=== PATIENT | female | born 1940 | race Caucasian/White ===

== ENCOUNTER 2022-06-02 08:56 | Outpatient (CLI) | payer MEDICARE ==
[~2022-06-02 08:56] MED LIST: Iopamidol-370 76% 500 ML 1 ML ONE
== END 2022-06-02 08:57 | disposition home or self-care (01) ==
LOC: BICCT 08:56
PROVIDERS: ATTEND Urology
DX: R31.29 Other microscopic hematuria (principal); N13.2 Hydronephrosis with renal and ureteral calculous obstruction; K57.30 Diverticulosis of large intestine without perforation or abscess without bleeding; I70.90 Unspecified atherosclerosis; N13.0 Hydronephrosis with ureteropelvic junction obstruction
CPT/HCPCS: 74178; 82565; Q9967

== ENCOUNTER 2022-10-01 19:59 | Inpatient (IN) | payer MEDICARE ==
[2022-10-01] MEDS ORDERED: Acetaminophen 650 MG Suppository PR PRN (21:19)
[2022-10-01] MEDS ORDERED: Acetaminophen 325 MG TAB PO PRN (21:19)
[2022-10-01] MEDS ORDERED: Ondansetron PF 4 MG/2 ML Vial IVP PRN (21:19)
[2022-10-01] MEDS ORDERED: Ondansetron ODT 4 MG TAB PO PRN (21:19)
[2022-10-01] MEDS: Doxycycline 100 MG in Sodium Chloride 0.9% 100 ML IVPB SCH (23:13)
[2022-10-01 23:20] LABS: Anion Gap 20 mmol/L (10-20); BUN (Urea Nitrogen) 71 mg/dL (9.8-20.1); Calc. Creatinine Clearance 12 mL/min (70-130); Calcium 10.9 mg/dL (7.8-10.44); Carbon Dioxide 24 mmol/L (23-31); Chloride 105 mmol/L (98-107); Estimated GFR 21; Glucose 129 mg/dL (83-110); Sodium 144 mmol/L (136-145)
[2022-10-01] MEDS: Sodium Chloride 0.9% 1,000 ML IV SCH (23:21)
[2022-10-01 23:39] LABS: Troponin I 0.706 ng/mL (< 0.028)
[2022-10-02 02:13] LABS: Troponin I 1.041 ng/mL (< 0.028)
[2022-10-02 02:22] LABS: Bacteria/HPF None Seen HPF (None Seen); Bilirubin Negative (Negative); Blood, Urine Negative (Negative); Clarity Clear (Clear); Glucose, Urine (Dipstick) 300 mg/dL (Negative); Ketone, Urine Negative (Negative); Leukocyte Negative Leu/uL (Negative); Nitrite Negative (Negative); Protein, Urine (Dipstick) Negative (Neg-Trace); Squamous Epithelial 0-3 HPF (0-3); Urobilinogen Normal mg/dL (Less than 2); pH, Urine 5.5 (5.0-9.0)
[2022-10-02] MEDS ORDERED: cefTRIAXone\\ROCEPHIN 1 GM in Sodium Chloride 0.9% 100 ML IVPB SCH (05:00)
[2022-10-02 05:52] LABS: Anion Gap 15 mmol/L (10-20); BUN (Urea Nitrogen) 79 mg/dL (9.8-20.1); Calc. Creatinine Clearance 12 mL/min (70-130); Calcium 10.4 mg/dL (7.8-10.44); Carbon Dioxide 30 mmol/L (23-31); Chloride 104 mmol/L (98-107); Estimated GFR 19; Glucose 149 mg/dL (83-110); Potassium 5.8 mmol/L (3.5-5.1); Sodium 143 mmol/L (136-145)
[2022-10-02 06:23] LABS: #Eosinphils 0.1 thou/uL (0.0-0.7); #Lymphocytes 0.8 thou/uL (1.20-3.40); #Monocytes 0.8 thou/uL (0.11-0.59); #Neutrophils 12.5 thou/uL (1.40-6.50); %Basophils 0.1 % (0.0-1.0); %Eosinophils 0.4 % (0.0-10.0); %Lymphocytes 5.5 % (21.0-51.0); %Monocytes 5.8 % (0.0-10.0); %Neutrophils 88.2 % (42.0-75.0); Hemoglobin 13.9 g/dL (12.0-16.0); Mean Corpuscular HGB CONC 28.2 g/dL (32.0-36.0); Mean Corpuscular Hemoglobin 28.9 pg (27.0-31.0); Mean Platelet Volume 9.3 fL (7.4-10.4); Platelet Count 258 10x3/uL (130-400); Red Blood Cell (RBC) Count 4.83 mill/uL (4.20-5.40); White Blood Cell (WBC) Count 14.1 10x3/uL (4.8-10.8)
[2022-10-02] MEDS ORDERED: Magnesium 5 GM/10 ML Abboject SYRINGE ONE (08:21)
[2022-10-02] MEDS ORDERED: EPINEPHrine 1 MG/10 ML Abboject SYRINGE ONE ×3 (08:23→08:28)
[2022-10-02] MEDS ORDERED: DEXTROSE IVPB SCH (08:45)
[2022-10-02] MEDS ORDERED: EPINEPHRINE IV SCH (08:45)
[2022-10-02] MEDS ORDERED: THIAMINE HCL IVPB SCH (08:45)
[2022-10-02] MEDS ORDERED: FOLIC ACID IVPB SCH (08:45)
[2022-10-02] MEDS ORDERED: NACL IVPB SCH (08:45)
[2022-10-02] MEDS ORDERED: DEXTROSE 5% IV SCH (08:45)
[2022-10-02] MEDS ORDERED: WATER IV SCH (08:45)
[2022-10-02] MEDS ORDERED: Acetaminophen 325 MG/10.15 ML UDCUP PO PRN (08:50)
[2022-10-02] MEDS ORDERED: Midazolam HCl 2 mg/2 ml Vial SLOW IVP PRN (08:56)
[2022-10-02] MEDS ORDERED: Fentanyl BOLUS 250 ML IVPB PRN (09:00)
[2022-10-02] MEDS ORDERED: Ventilator Sedation Protocol 1 EACH FS SCH (09:00)
[2022-10-02] MEDS ORDERED: Morphine 4 MG/ML VIAL SLOW IVP PRN (09:00)
[2022-10-02] MEDS ORDERED: Propofol BOLUS 1,000 MG/100 ML VIAL IV PRN (09:00)
[2022-10-02] MEDS ORDERED: DISCONTINUE PREVIOUS NARCOTIC PAIN MEDICATIONS AND BENZODIAZEPINES FS SCH (09:00)
[2022-10-02 09:13] LABS: Actual Bicarbonate (HCO3a) 31.5 mEq/L (22-28); Base Excess (BEa) -0.5 mEq/L (-2.0 to +3.0); Carboxyhemoglobin (COHb) 1.2 gm% (0.0-3.0); Hemoglobin (Hb) 15.8 g/dL (12.0-16.0); Potassium - ABG Lab 4.47 mmol/L (3.70-5.30)
[2022-10-02] MEDS: Sodium Bicarbonate 150 MEQ in Dextrose 5% in Water 1,000 ML IV SCH ×2 (09:29→19:14)
[2022-10-02 09:40] LABS: CO2 Tension 91.2 mmHg (35.0-45.0); O2 Tension (PaO2), arterial 46.8 mmHg (> 60.0); pH, Arterial 7.16 (7.35-7.45)
[2022-10-02 09:41] LABS: Calcium, Ionized (arterial) 1.76 mmol/L (1.12-1.30); Puncture Site LBA
[2022-10-02] MEDS: Sodium Chloride 0.9% 1,000 ML IV SCH (09:44)
[2022-10-02 09:54] LABS: Lactic Acid 3.3 mmol/L (0.5-2.2)
[2022-10-02 10:01] LABS: Actual Bicarbonate (HCO3a) 26.3 mEq/L (22-28); Base Excess (BEa) -1.9 mEq/L (-2.0 to +3.0); CO2 Tension 59.2 mmHg (35.0-45.0); Calcium, Ionized (arterial) 1.59 mmol/L (1.12-1.30); Carboxyhemoglobin (COHb) 1.2 gm% (0.0-3.0); Hemoglobin (Hb) 15.3 g/dL (12.0-16.0); Potassium - ABG Lab 4.46 mmol/L (3.70-5.30); pH, Arterial 7.27 (7.35-7.45)
[2022-10-02] MEDS: Heparin 5,000 UNITS/ML VIAL SC SCH ×3 (10:07→20:42)
[2022-10-02 10:08] LABS: O2 Tension (PaO2), arterial 54.8 mmHg (> 60.0)
[2022-10-02 10:09] LABS: Puncture Site RRA
[2022-10-02 10:19] LABS: Anion Gap 18 mmol/L (10-20); BUN (Urea Nitrogen) 76 mg/dL (9.8-20.1); Calc. Creatinine Clearance 11 mL/min (70-130); Calcium 12.3 mg/dL (7.8-10.44); Carbon Dioxide 23 mmol/L (23-31); Chloride 110 mmol/L (98-107); Estimated GFR 17; Glucose 198 mg/dL (83-110); Magnesium 5.6 mg/dL (1.6-2.6); Potassium 5.2 mmol/L (3.5-5.1); Sodium 146 mmol/L (136-145)
[2022-10-02 10:38] LABS: CKMB 7.2 ng/mL (0-6.6)
[2022-10-02] MEDS: Famotidine/PF 20 mg/2ml Vial SLOW IVP SCH (11:14)
[2022-10-02] MEDS: Doxycycline 100 MG in Sodium Chloride 0.9% 100 ML IVPB SCH ×2 (11:14→21:34)
[2022-10-02] MEDS: methylPREDNISolone Sod Succ 40 MG VIAL IVP SCH (11:15)
[2022-10-02] MEDS: Fentanyl CADD 100 ML IV SCH (12:25)
[2022-10-02 12:37] LABS: Hemoglobin 14.9 g/dL (12.0-16.0); Mean Corpuscular HGB CONC 28.7 g/dL (32.0-36.0); Mean Corpuscular Hemoglobin 29.8 pg (27.0-31.0); Mean Platelet Volume 9.1 fL (7.4-10.4); Platelet Count 199 10x3/uL (130-400); RBC Distribution Width 14.6 % (11.5-14.5); Red Blood Cell (RBC) Count 5.02 mill/uL (4.20-5.40); White Blood Cell (WBC) Count 29.6 10x3/uL (4.8-10.8)
[2022-10-02 12:49] LABS: Band 15 % (5-11); Lymphocytes 3 % (21-51); MDiff Complete? YES; Macrocytosis SLIGHT = 6-15 cells (100X) (0-5/hpf); Metamyelocyte 1 % (0-0); Monocytes 9 % (0-10); Neutrophil 72 % (42-75); Nucleated RBC 1 % (0); Platelet Morphology Comment Appears Adequate; Polychromasia SLIGHT = 2-3 cells (100X) (0-2/hpf)
[2022-10-02 13:11] LABS: Critical Call Chem Troponin I RESULT DECREASING
[2022-10-02] MEDS: Cefepime 1 GM in Sodium Chloride 0.9% 100 ML IVPB SCH (14:47)
[2022-10-02 15:34] LABS: CKMB 15.7 ng/mL (0-6.6)
[2022-10-02 18:54] LABS: HBCM Index 0.06 S/CO (0-0.79); HBSAg Index 0.29 S/CO (0-0.99); Hep A IgM AB Non-Reactive (NonReactive); Hep A IgM S/CO 0.49 S/CO (0-0.79); Hep B Surf Ag Non-Reactive S/CO (NonReactive); Hep C IgG Ab Non-Reactive (NonReactive); Hep C Index 0.08 S/CO (0-0.79); Hepatitis B Core IgM Abs Non-Reactive (NonReactive)
[2022-10-02] MEDS: NOREPINEPHRINE 8 MG/250 ML-D5W 250 ML IVPB SCH (20:45)
[2022-10-02 21:23] LABS: Chloride 105 mmol/L (98-107); Potassium 5.2 mmol/L (3.5-5.1); Sodium 145 mmol/L (136-145)
[2022-10-02 21:24] LABS: Calcium 11.1 mg/dL (7.8-10.44); Glucose 243 mg/dL (83-110)
[2022-10-02 21:26] LABS: Carbon Dioxide 21 mmol/L (23-31)
[2022-10-02 21:28] LABS: BUN (Urea Nitrogen) 77 mg/dL (9.8-20.1); Calc. Creatinine Clearance 11 mL/min (70-130); Estimated GFR 18
[2022-10-02 21:39] LABS: Anion Gap 24 mmol/L (10-20)
[2022-10-03] MEDS: Sodium Bicarbonate 150 MEQ in Dextrose 5% in Water 1,000 ML IV SCH ×3 (01:00→15:31)
[2022-10-03] MEDS: Amiodarone 450 MG, Admixture Fee 1 EACH in Dextrose 5% in Water 250 ML IVPB SCH ×4 (02:15→23:30)
[2022-10-03] MEDS: NOREPINEPHRINE 8 MG/250 ML-D5W 250 ML IVPB SCH ×4 (02:26→16:03)
[2022-10-03 02:51] LABS: ALT (SGPT) 81 U/L (8-55); AST (SGOT) 51 U/L (5-34); Albumin 2.8 g/dL (3.4-4.8); Alkaline Phosphatase 76 U/L (40-110); Anion Gap 18 mmol/L (10-20); BUN (Urea Nitrogen) 86 mg/dL (9.8-20.1); Bilirubin, Total 0.7 mg/dL (0.2-1.2); Calc. Creatinine Clearance 9 mL/min (70-130); Carbon Dioxide 29 mmol/L (23-31); Chloride 102 mmol/L (98-107); Estimated GFR 14; Globulin 2.4 g/dL (2.4-3.5); Glucose 226 mg/dL (83-110); Magnesium 4.5 mg/dL (1.6-2.6); Phosphorus 4.5 mg/dL (2.3-4.7); Potassium 4.1 mmol/L (3.5-5.1); Protein, Total 5.2 g/dL (5.8-8.1); Sodium 145 mmol/L (136-145)
[2022-10-03 03:02] LABS: Hemoglobin 15.5 g/dL (12.0-16.0); Mean Corpuscular HGB CONC 30.1 g/dL (32.0-36.0); Mean Corpuscular Hemoglobin 30.1 pg (27.0-31.0); Mean Platelet Volume 9.2 fL (7.4-10.4); Platelet Count 239 10x3/uL (130-400); RBC Distribution Width 14.7 % (11.5-14.5); Red Blood Cell (RBC) Count 5.13 mill/uL (4.20-5.40); White Blood Cell (WBC) Count 27.9 10x3/uL (4.8-10.8)
[2022-10-03] MEDS: Heparin 5,000 UNITS/ML VIAL SC SCH ×3 (09:05→20:50)
[2022-10-03] MEDS: Doxycycline 100 MG in Sodium Chloride 0.9% 100 ML IVPB SCH ×2 (09:10→21:58)
[2022-10-03] MEDS: methylPREDNISolone Sod Succ 40 MG VIAL IVP SCH (09:10)
[2022-10-03] MEDS: Famotidine/PF 20 mg/2ml Vial SLOW IVP SCH (09:10)
[2022-10-03] MEDS ORDERED: Sodium Bicarbonate 150 MEQ in Dextrose 5% in Water 1,000 ML IV SCH (12:00)
[2022-10-03] MEDS: Cefepime 1 GM in Sodium Chloride 0.9% 100 ML IVPB SCH (14:49)
[2022-10-03] MEDS: Insulin Regular 300 UNITS/3 ML VIAL SC PRN (18:43)
[2022-10-03] MEDS: Fentanyl CADD 100 ML IV SCH (23:48)
[2022-10-04] MEDS: Insulin Regular 300 UNITS/3 ML VIAL SC PRN ×2 (00:26→06:56)
[2022-10-04] MEDS: Sodium Bicarbonate 150 MEQ in Dextrose 5% in Water 1,000 ML IV SCH (03:25)
[2022-10-04 04:53] LABS: Lactic Acid 2.6 mmol/L (0.5-2.2)
[2022-10-04 04:58] LABS: ALT (SGPT) 64 U/L (8-55); AST (SGOT) 42 U/L (5-34); Albumin 2.5 g/dL (3.4-4.8); Alkaline Phosphatase 61 U/L (40-110); Anion Gap 15 mmol/L (10-20); BUN (Urea Nitrogen) 93 mg/dL (9.8-20.1); Bilirubin, Total 0.8 mg/dL (0.2-1.2); Calc. Creatinine Clearance 10 mL/min (70-130); Calcium 9.3 mg/dL (7.8-10.44); Carbon Dioxide 33 mmol/L (23-31); Chloride 92 mmol/L (98-107); Estimated GFR 14; Globulin 2.1 g/dL (2.4-3.5); Glucose 289 mg/dL (83-110); Potassium 3.4 mmol/L (3.5-5.1); Protein, Total 4.6 g/dL (5.8-8.1); Sodium 137 mmol/L (136-145)
[2022-10-04 05:41] LABS: Anisocytosis SLIGHT = 6-15 cells (100X) (0-5/hpf); Band 21 % (5-11); Hemoglobin 13.4 g/dL (12.0-16.0); Lymphocytes 5 % (21-51); MDiff Complete? YES; Mean Corpuscular HGB CONC 32.4 g/dL (32.0-36.0); Mean Corpuscular Hemoglobin 31.4 pg (27.0-31.0); Mean Platelet Volume 9.5 fL (7.4-10.4); Monocytes 5 % (0-10); Neutrophil 67 % (42-75); Platelet Count 158 10x3/uL (130-400); Platelet Morphology Comment Appears Adequate; RBC Distribution Width 14.7 % (11.5-14.5); Reactive Lymphocytes 2 % (0-10); Red Blood Cell (RBC) Count 4.26 mill/uL (4.20-5.40); White Blood Cell (WBC) Count 23.2 10x3/uL (4.8-10.8)
[2022-10-04] MEDS: NOREPINEPHRINE 8 MG/250 ML-D5W 250 ML IVPB SCH (05:42)
[2022-10-04] MEDS: Dextrose 5 % And 0.9 % NaCl 1,000 ML IV SCH ×2 (06:51→18:12)
[2022-10-04] MEDS: methylPREDNISolone Sod Succ 40 MG VIAL IVP SCH ×2 (10:34→12:26)
[2022-10-04] MEDS: Heparin 5,000 UNITS/ML VIAL SC SCH ×3 (10:35→21:06)
[2022-10-04] MEDS: Famotidine/PF 20 mg/2ml Vial SLOW IVP SCH (10:35)
[2022-10-04] MEDS: Doxycycline 100 MG in Sodium Chloride 0.9% 100 ML IVPB SCH ×2 (10:36→21:06)
[2022-10-04] MEDS ORDERED: Lidocaine 1% (PF) 30 ML VIAL FS PRN (15:45)
[2022-10-04] MEDS ORDERED: Lidocaine 1% (PF) 30 ML VIAL FS SCH (15:45)
[2022-10-04] MEDS: Cefepime 1 GM in Sodium Chloride 0.9% 100 ML IVPB SCH (16:30)
[2022-10-05] MEDS: Fentanyl CADD 100 ML IV SCH (01:31)
[2022-10-05] MEDS: NOREPINEPHRINE 8 MG/250 ML-D5W 250 ML IVPB SCH (02:07)
[2022-10-05] MEDS: Dextrose 5 % And 0.9 % NaCl 1,000 ML IV SCH ×3 (02:56→21:39)
[2022-10-05 04:50] LABS: ALT (SGPT) 64 U/L (8-55); AST (SGOT) 55 U/L (5-34); Albumin 2.5 g/dL (3.4-4.8); Alkaline Phosphatase 64 U/L (40-110); Anion Gap 13 mmol/L (10-20); BUN (Urea Nitrogen) 72 mg/dL (9.8-20.1); Bilirubin, Total 1.1 mg/dL (0.2-1.2); Calc. Creatinine Clearance 15 mL/min (70-130); Calcium 8.8 mg/dL (7.8-10.44); Carbon Dioxide 33 mmol/L (23-31); Chloride 99 mmol/L (98-107); Estimated GFR 23; Glucose 201 mg/dL (83-110); Potassium 3.1 mmol/L (3.5-5.1); Protein, Total 4.5 g/dL (5.8-8.1); Sodium 142 mmol/L (136-145)
[2022-10-05 04:57] LABS: Band 8 % (5-11); Hemoglobin 11.6 g/dL (12.0-16.0); Lymphocytes 22 % (21-51); MDiff Complete? YES; Mean Corpuscular HGB CONC 31.3 g/dL (32.0-36.0); Mean Corpuscular Hemoglobin 30.4 pg (27.0-31.0); Mean Corpuscular Volume 97.1 fl (78.0-98.0); Mean Platelet Volume 9.5 fL (7.4-10.4); Monocytes 2 % (0-10); Neutrophil 68 % (42-75); Platelet Count 123 10x3/uL (130-400); Platelet Morphology Comment Appears Adequate; RBC Distribution Width 14.5 % (11.5-14.5); RBC Morphology Normal; Red Blood Cell (RBC) Count 3.81 mill/uL (4.20-5.40); White Blood Cell (WBC) Count 21.1 10x3/uL (4.8-10.8)
[2022-10-05 07:52] LABS: Actual Bicarbonate (HCO3a) 32.2 mEq/L (22-28); Base Excess (BEa) 8.5 mEq/L (-2.0 to +3.0); CO2 Tension 40.9 mmHg (35.0-45.0); Carboxyhemoglobin (COHb) 0.7 gm% (0.0-3.0); Hemoglobin (Hb) 12.7 g/dL (12.0-16.0); O2 Tension (PaO2), arterial 89.4 mmHg (> 60.0); Potassium - ABG Lab 2.93 mmol/L (3.70-5.30); pH, Arterial 7.51 (7.35-7.45)
[2022-10-05 07:54] LABS: ALV-art Gradient 144.675 mmHg (0-20); Puncture Site RRA
[2022-10-05] MEDS ORDERED: Electrolyte Replacement Protocol FS SCH (08:15)
[2022-10-05] MEDS: methylPREDNISolone Sod Succ 40 MG VIAL IVP SCH (09:59)
[2022-10-05] MEDS: Famotidine/PF 20 mg/2ml Vial SLOW IVP SCH (10:01)
[2022-10-05] MEDS: Doxycycline 100 MG in Sodium Chloride 0.9% 100 ML IVPB SCH ×2 (10:03→21:54)
[2022-10-05] MEDS: Potassium Chloride 20 MEQ in Premix Bag 1 BAG IVPB SCH ×2 (10:08→11:28)
[2022-10-05] MEDS: Heparin 5,000 UNITS/ML VIAL SC SCH ×3 (10:16→21:37)
[2022-10-05 11:41] LABS: Magnesium 2.5 mg/dL (1.6-2.6)
[2022-10-05] MEDS: Albumin 25% 25 GM/100 ML BOT IVPB SCH ×2 (12:42→18:07)
[2022-10-05 13:27] LABS: Glucose 108 mg/dL (83-110)
[2022-10-05] MEDS: Cefepime 1 GM in Sodium Chloride 0.9% 100 ML IVPB SCH (14:26)
[2022-10-05 17:53] LABS: Potassium 3.6 mmol/L (3.5-5.1)
[2022-10-05 18:16] LABS: Glucose 176 mg/dL (83-110)
[2022-10-06 00:25] LABS: Glucose 240 mg/dL (83-110)
[2022-10-06] MEDS: Insulin Regular 300 UNITS/3 ML VIAL SC PRN ×3 (01:07→18:26)
[2022-10-06] MEDS: Albumin 25% 25 GM/100 ML BOT IVPB SCH ×2 (01:08→05:19)
[2022-10-06 06:11] LABS: ALT (SGPT) 50 U/L (8-55); AST (SGOT) 39 U/L (5-34); Albumin 3.8 g/dL (3.4-4.8); Alkaline Phosphatase 84 U/L (40-110); Anion Gap 11 mmol/L (10-20); BUN (Urea Nitrogen) 45 mg/dL (9.8-20.1); Bilirubin, Total 1.3 mg/dL (0.2-1.2); Calc. Creatinine Clearance 23 mL/min (70-130); Calcium 8.8 mg/dL (7.8-10.44); Carbon Dioxide 31 mmol/L (23-31); Chloride 108 mmol/L (98-107); Estimated GFR 35; Globulin 1.6 g/dL (2.4-3.5); Glucose 210 mg/dL (83-110); Potassium 3.6 mmol/L (3.5-5.1); Protein, Total 5.4 g/dL (5.8-8.1); Sodium 146 mmol/L (136-145)
[2022-10-06 07:10] LABS: Hemoglobin 10.1 g/dL (12.0-16.0); Mean Corpuscular HGB CONC 31.2 g/dL (32.0-36.0); Mean Corpuscular Hemoglobin 30.9 pg (27.0-31.0); Mean Corpuscular Volume 99.1 fl (78.0-98.0); Mean Platelet Volume 9.5 fL (7.4-10.4); Platelet Count 99 10x3/uL (130-400); RBC Distribution Width 14.6 % (11.5-14.5); Red Blood Cell (RBC) Count 3.28 mill/uL (4.20-5.40); White Blood Cell (WBC) Count 16.5 10x3/uL (4.8-10.8)
[2022-10-06] MEDS: Fentanyl CADD 100 ML IV SCH ×2 (07:19→21:14)
[2022-10-06 07:30] LABS: Glucose 179 mg/dL (83-110)
[2022-10-06 08:07] LABS: Actual Bicarbonate (HCO3a) 28.7 mEq/L (22-28); CO2 Tension 43.4 mmHg (35.0-45.0); Calcium, Ionized (arterial) 1.18 mmol/L (1.12-1.30); Carboxyhemoglobin (COHb) 0.7 gm% (0.0-3.0); Hemoglobin (Hb) 10.6 g/dL (12.0-16.0); O2 Tension (PaO2), arterial 89.6 mmHg (> 60.0); Potassium - ABG Lab 3.53 mmol/L (3.70-5.30); pH, Arterial 7.44 (7.35-7.45)
[2022-10-06 08:08] LABS: Puncture Site RRA
[2022-10-06 08:10] LABS: Band 24 % (5-11); Lymphocytes 7 % (21-51); MDiff Complete? YES; Monocytes 2 % (0-10); Neutrophil 67 % (42-75); Platelet Morphology Comment Appears Decreased; Polychromasia SLIGHT = 2-3 cells (100X) (0-2/hpf)
[2022-10-06] MEDS: Heparin 5,000 UNITS/ML VIAL SC SCH ×3 (08:14→21:01)
[2022-10-06] MEDS: Famotidine/PF 20 mg/2ml Vial SLOW IVP SCH (08:15)
[2022-10-06] MEDS: Dextrose 5 % And 0.9 % NaCl 1,000 ML IV SCH ×2 (08:24→18:37)
[2022-10-06] MEDS: methylPREDNISolone Sod Succ 40 MG VIAL IVP SCH (11:22)
[2022-10-06] MEDS: Doxycycline 100 MG in Sodium Chloride 0.9% 100 ML IVPB SCH ×2 (11:27→21:59)
[2022-10-06] MEDS: Cefepime 1 GM in Sodium Chloride 0.9% 100 ML IVPB SCH (14:39)
[2022-10-06 20:07] LABS: Actual Bicarbonate (HCO3a) 28.4 mEq/L (22-28); Base Excess (BEa) -1.1 mEq/L (-2.0 to +3.0); Calcium, Ionized (arterial) 1.22 mmol/L (1.12-1.30); Hemoglobin (Hb) 12.1 g/dL (12.0-16.0); pH, Arterial 7.21 (7.35-7.45)
[2022-10-06] MEDS: Propofol 1,000 MG/100 ML VIAL IV PRN (21:00)
[2022-10-06] MEDS ORDERED: Fentanyl CADD 100 ML ONE (21:12)
[2022-10-06 21:24] LABS: Actual Bicarbonate (HCO3a) 27.8 mEq/L (22-28); Base Excess (BEa) 0.8 mEq/L (-2.0 to +3.0); CO2 Tension 56.3 mmHg (35.0-45.0); Calcium, Ionized (arterial) 1.19 mmol/L (1.12-1.30); Carboxyhemoglobin (COHb) 0.9 gm% (0.0-3.0); Hemoglobin (Hb) 11.5 g/dL (12.0-16.0); O2 Tension (PaO2), arterial 92.5 mmHg (> 60.0); Potassium - ABG Lab 4.07 mmol/L (3.70-5.30); Puncture Site RRA; pH, Arterial 7.31 (7.35-7.45)
[2022-10-06 21:25] LABS: ALV-art Gradient 264.925 mmHg (0-20)
[2022-10-06] MEDS: NOREPINEPHRINE 8 MG/250 ML-D5W 250 ML IVPB SCH (21:55)
[2022-10-06 22:31] LABS: CO2 Tension 73.5 mmHg (35.0-45.0); O2 Tension (PaO2), arterial 41.5 mmHg (> 60.0); Puncture Site RRA
[2022-10-06 22:32] LABS: ALV-art Gradient 151.825 mmHg (0-20)
[2022-10-07] MEDS: Dextrose 5 % And 0.9 % NaCl 1,000 ML IV SCH (03:43)
[2022-10-07 04:52] LABS: ALT (SGPT) 51 U/L (8-55); AST (SGOT) 42 U/L (5-34); Albumin 3.2 g/dL (3.4-4.8); Alkaline Phosphatase 83 U/L (40-110); Anion Gap 13 mmol/L (10-20); BUN (Urea Nitrogen) 41 mg/dL (9.8-20.1); Bilirubin, Total 1.4 mg/dL (0.2-1.2); Calc. Creatinine Clearance 32 mL/min (70-130); Calcium 8.4 mg/dL (7.8-10.44); Carbon Dioxide 27 mmol/L (23-31); Chloride 113 mmol/L (98-107); Estimated GFR 53; Globulin 1.5 g/dL (2.4-3.5); Glucose 161 mg/dL (83-110); Potassium 3.5 mmol/L (3.5-5.1); Protein, Total 4.7 g/dL (5.8-8.1); Sodium 149 mmol/L (136-145)
[2022-10-07 05:08] LABS: Anisocytosis SLIGHT = 6-15 cells (100X) (0-5/hpf); Band 6 % (5-11); Burr Cells SLIGHT = 2-5 cells (100X) (0-1/hpf); Lymphocytes 4 % (21-51); MDiff Complete? YES; Macrocytosis SLIGHT = 6-15 cells (100X) (0-5/hpf); Mean Corpuscular HGB CONC 30.4 g/dL (32.0-36.0); Mean Corpuscular Hemoglobin 30.1 pg (27.0-31.0); Mean Corpuscular Volume 99.1 fl (78.0-98.0); Mean Platelet Volume 10.3 fL (7.4-10.4); Monocytes 5 % (0-10); Neutrophil 85 % (42-75); Ovalocytes SLIGHT = 2-5 cells (100X) (0-1/hpf); Platelet Count 103 10x3/uL (130-400); Platelet Morphology Comment Appears Decreased; RBC Distribution Width 14.8 % (11.5-14.5); Red Blood Cell (RBC) Count 3.32 mill/uL (4.20-5.40)
[2022-10-07] MEDS: Insulin Regular 300 UNITS/3 ML VIAL SC PRN (05:52)
[2022-10-07] MEDS: Sodium Chloride 0.45% 1,000 ML IV SCH ×2 (06:03→15:59)
[2022-10-07 06:37] LABS: Actual Bicarbonate (HCO3a) 26.6 mEq/L (22-28); Base Excess (BEa) 4.3 mEq/L (-2.0 to +3.0); CO2 Tension 32.1 mmHg (35.0-45.0); Calcium, Ionized (arterial) 1.14 mmol/L (1.12-1.30); Hemoglobin (Hb) 10.8 g/dL (12.0-16.0); O2 Tension (PaO2), arterial 98.7 mmHg (> 60.0); Potassium - ABG Lab 3.29 mmol/L (3.70-5.30); pH, Arterial 7.54 (7.35-7.45)
[2022-10-07 06:40] LABS: ALV-art Gradient 146.375 mmHg (0-20); Puncture Site LRA
[2022-10-07] MEDS: Doxycycline 100 MG in Sodium Chloride 0.9% 100 ML IVPB SCH ×2 (08:26→21:09)
[2022-10-07] MEDS: methylPREDNISolone Sod Succ 40 MG VIAL IVP SCH (08:27)
[2022-10-07] MEDS: Famotidine/PF 20 mg/2ml Vial SLOW IVP SCH (08:27)
[2022-10-07] MEDS: Potassium Chloride 20 MEQ in Premix Bag 1 BAG IVPB SCH ×2 (08:27→09:34)
[2022-10-07] MEDS: Heparin 5,000 UNITS/ML VIAL SC SCH ×2 (11:19→21:09)
[2022-10-07] MEDS: Propofol 1,000 MG/100 ML VIAL IV PRN (15:59)
[2022-10-08] MEDS: Fentanyl CADD 100 ML IV SCH (00:39)
[2022-10-08] MEDS: Sodium Chloride 0.45% 1,000 ML IV SCH ×3 (01:33→21:53)
[2022-10-08 04:37] LABS: ALT (SGPT) 42 U/L (8-55); AST (SGOT) 30 U/L (5-34); Albumin 2.9 g/dL (3.4-4.8); Alkaline Phosphatase 72 U/L (40-110); Anion Gap 8 mmol/L (10-20); BUN (Urea Nitrogen) 33 mg/dL (9.8-20.1); Bilirubin, Total 1.2 mg/dL (0.2-1.2); Calc. Creatinine Clearance 41 mL/min (70-130); Calcium 8.1 mg/dL (7.8-10.44); Carbon Dioxide 27 mmol/L (23-31); Chloride 113 mmol/L (98-107); Estimated GFR 71; Globulin 1.5 g/dL (2.4-3.5); Glucose 106 mg/dL (83-110); Potassium 4.2 mmol/L (3.5-5.1); Protein, Total 4.4 g/dL (5.8-8.1); Sodium 144 mmol/L (136-145)
[2022-10-08] MEDS: Propofol 1,000 MG/100 ML VIAL IV PRN ×2 (05:11→22:46)
[2022-10-08 07:47] LABS: Hemoglobin 10.4 g/dL (12.0-16.0); Mean Corpuscular Hemoglobin 30.9 pg (27.0-31.0); Mean Corpuscular Volume 99.6 fl (78.0-98.0); Mean Platelet Volume 9.6 fL (7.4-10.4); Platelet Count 118 10x3/uL (130-400); RBC Distribution Width 14.5 % (11.5-14.5); Red Blood Cell (RBC) Count 3.36 mill/uL (4.20-5.40); White Blood Cell (WBC) Count 17.2 10x3/uL (4.8-10.8)
[2022-10-08 07:49] LABS: Actual Bicarbonate (HCO3a) 25.4 mEq/L (22-28); Base Excess (BEa) 1.3 mEq/L (-2.0 to +3.0); CO2 Tension 38.1 mmHg (35.0-45.0); Calcium, Ionized (arterial) 1.16 mmol/L (1.12-1.30); Carboxyhemoglobin (COHb) 1.1 gm% (0.0-3.0); Hemoglobin (Hb) 10.9 g/dL (12.0-16.0); O2 Tension (PaO2), arterial 89.2 mmHg (> 60.0); Potassium - ABG Lab 3.96 mmol/L (3.70-5.30); pH, Arterial 7.44 (7.35-7.45)
[2022-10-08 07:51] LABS: ALV-art Gradient 77.075 mmHg (0-20); Puncture Site LRA
[2022-10-08 08:30] LABS: Band 8 % (5-11); Lymphocytes 5 % (21-51); MDiff Complete? YES; Monocytes 6 % (0-10); Neutrophil 81 % (42-75); Nucleated RBC 1 % (0); Platelet Morphology Comment Appears Decreased; Polychromasia SLIGHT = 2-3 cells (100X) (0-2/hpf)
[2022-10-08] MEDS: Famotidine/PF 20 mg/2ml Vial SLOW IVP SCH (09:05)
[2022-10-08] MEDS: methylPREDNISolone Sod Succ 40 MG VIAL IVP SCH (09:06)
[2022-10-08] MEDS: Heparin 5,000 UNITS/ML VIAL SC SCH ×2 (09:06→21:03)
[2022-10-08] MEDS: Doxycycline 100 MG in Sodium Chloride 0.9% 100 ML IVPB SCH ×2 (09:06→21:03)
[2022-10-09 04:26] LABS: ALT (SGPT) 37 U/L (8-55); AST (SGOT) 22 U/L (5-34); Albumin 2.9 g/dL (3.4-4.8); Alkaline Phosphatase 68 U/L (40-110); Anion Gap 6 mmol/L (10-20); BUN (Urea Nitrogen) 28 mg/dL (9.8-20.1); Bilirubin, Total 1.1 mg/dL (0.2-1.2); Calc. Creatinine Clearance 51 mL/min (70-130); Calcium 8.1 mg/dL (7.8-10.44); Carbon Dioxide 28 mmol/L (23-31); Chloride 110 mmol/L (98-107); Estimated GFR 78; Globulin 1.4 g/dL (2.4-3.5); Glucose 107 mg/dL (83-110); Potassium 4.2 mmol/L (3.5-5.1); Protein, Total 4.3 g/dL (5.8-8.1); Sodium 140 mmol/L (136-145)
[2022-10-09 05:02] LABS: Anisocytosis SLIGHT = 6-15 cells (100X) (0-5/hpf); Band 2 % (5-11); Hemoglobin 10.4 g/dL (12.0-16.0); Hypochromia SLIGHT = 6-15 cells (100X) (0-5/hpf); Lymphocytes 8 % (21-51); MDiff Complete? YES; Mean Corpuscular HGB CONC 30.7 g/dL (32.0-36.0); Mean Corpuscular Hemoglobin 30.1 pg (27.0-31.0); Mean Platelet Volume 10.2 fL (7.4-10.4); Monocytes 8 % (0-10); Neutrophil 82 % (42-75); Platelet Count 129 10x3/uL (130-400); Platelet Morphology Comment Appears Decreased; Polychromasia SLIGHT = 2-3 cells (100X) (0-2/hpf); RBC Distribution Width 14.6 % (11.5-14.5); Red Blood Cell (RBC) Count 3.46 mill/uL (4.20-5.40); White Blood Cell (WBC) Count 15.7 10x3/uL (4.8-10.8)
[2022-10-09 06:49] LABS: Actual Bicarbonate (HCO3a) 25.3 mEq/L (22-28); Base Excess (BEa) 0.2 mEq/L (-2.0 to +3.0); CO2 Tension 42.8 mmHg (35.0-45.0); Calcium, Ionized (arterial) 1.19 mmol/L (1.12-1.30); Carboxyhemoglobin (COHb) 1.3 gm% (0.0-3.0); Hemoglobin (Hb) 11.2 g/dL (12.0-16.0); O2 Tension (PaO2), arterial 84.3 mmHg (> 60.0); Potassium - ABG Lab 4.14 mmol/L (3.70-5.30); pH, Arterial 7.39 (7.35-7.45)
[2022-10-09 07:04] LABS: Puncture Site RRA
[2022-10-09] MEDS: Doxycycline 100 MG in Sodium Chloride 0.9% 100 ML IVPB SCH (09:34)
[2022-10-09] MEDS: methylPREDNISolone Sod Succ 40 MG VIAL IVP SCH (09:34)
[2022-10-09] MEDS: Sodium Chloride 0.45% 1,000 ML IV SCH ×2 (09:34→19:07)
[2022-10-09] MEDS: Famotidine/PF 20 mg/2ml Vial SLOW IVP SCH (09:34)
[2022-10-09] MEDS: Heparin 5,000 UNITS/ML VIAL SC SCH ×2 (09:35→20:41)
[2022-10-09] MEDS ORDERED: Fentanyl CADD 100 ML ONE (13:56)
[2022-10-09] MEDS: Fentanyl CADD 100 ML IV SCH (14:12)
[2022-10-09] MEDS: NOREPINEPHRINE 8 MG/250 ML-D5W 250 ML IVPB SCH (20:47)
[2022-10-10] MEDS: Sodium Chloride 0.45% 1,000 ML IV SCH ×2 (04:40→17:14)
[2022-10-10 04:59] LABS: #Eosinphils 0.1 thou/uL (0.0-0.7); #Monocytes 1.3 thou/uL (0.11-0.59); #Neutrophils 8.5 thou/uL (1.40-6.50); %Basophils 0.1 % (0.0-1.0); %Eosinophils 0.6 % (0.0-10.0); %Lymphocytes 9.6 % (21.0-51.0); %Neutrophils 77.8 % (42.0-75.0); Hemoglobin 9.9 g/dL (12.0-16.0); Mean Corpuscular Hemoglobin 30.4 pg (27.0-31.0); Mean Corpuscular Volume 98.1 fl (78.0-98.0); Mean Platelet Volume 9.5 fL (7.4-10.4); Platelet Count 167 10x3/uL (130-400); RBC Distribution Width 14.4 % (11.5-14.5); Red Blood Cell (RBC) Count 3.25 mill/uL (4.20-5.40); White Blood Cell (WBC) Count 10.9 10x3/uL (4.8-10.8)
[2022-10-10 05:08] LABS: ALT (SGPT) 30 U/L (8-55); AST (SGOT) 16 U/L (5-34); Albumin 2.5 g/dL (3.4-4.8); Alkaline Phosphatase 63 U/L (40-110); Anion Gap 8 mmol/L (10-20); BUN (Urea Nitrogen) 27 mg/dL (9.8-20.1); Bilirubin, Total 0.9 mg/dL (0.2-1.2); Calc. Creatinine Clearance 53 mL/min (70-130); Carbon Dioxide 26 mmol/L (23-31); Chloride 111 mmol/L (98-107); Estimated GFR 79; Globulin 1.5 g/dL (2.4-3.5); Glucose 116 mg/dL (83-110); Potassium 4.1 mmol/L (3.5-5.1); Sodium 141 mmol/L (136-145)
[2022-10-10 07:34] LABS: Actual Bicarbonate (HCO3a) 23.7 mEq/L (22-28); Base Excess (BEa) -0.9 mEq/L (-2.0 to +3.0); Calcium, Ionized (arterial) 1.19 mmol/L (1.12-1.30); Carboxyhemoglobin (COHb) 1.1 gm% (0.0-3.0); Hemoglobin (Hb) 10.8 g/dL (12.0-16.0); O2 Tension (PaO2), arterial 80.7 mmHg (> 60.0); Potassium - ABG Lab 4.04 mmol/L (3.70-5.30)
[2022-10-10 07:37] LABS: Puncture Site RRA
[2022-10-10] MEDS: Famotidine/PF 20 mg/2ml Vial SLOW IVP SCH (10:02)
[2022-10-10] MEDS: methylPREDNISolone Sod Succ 40 MG VIAL IVP SCH (10:02)
[2022-10-10] MEDS: Heparin 5,000 UNITS/ML VIAL SC SCH ×2 (10:12→21:23)
[2022-10-10 11:31] VITALS: BP 106/52
[2022-10-11 04:18] LABS: #Eosinphils 0.1 thou/uL (0.0-0.7); #Lymphocytes 0.9 thou/uL (1.20-3.40); #Monocytes 1.6 thou/uL (0.11-0.59); #Neutrophils 13.5 thou/uL (1.40-6.50); %Basophils 0.3 % (0.0-1.0); %Eosinophils 0.3 % (0.0-10.0); %Lymphocytes 5.4 % (21.0-51.0); %Monocytes 10.1 % (0.0-10.0); %Neutrophils 83.9 % (42.0-75.0); Hemoglobin 10.7 g/dL (12.0-16.0); Mean Corpuscular HGB CONC 30.4 g/dL (32.0-36.0); Mean Corpuscular Hemoglobin 29.8 pg (27.0-31.0); Mean Platelet Volume 9.4 fL (7.4-10.4); Platelet Count 197 10x3/uL (130-400); RBC Distribution Width 14.4 % (11.5-14.5)
[2022-10-11] MEDS: Sodium Chloride 0.45% 1,000 ML IV SCH ×4 (04:18→21:07)
[2022-10-11 04:54] LABS: ALT (SGPT) 33 U/L (8-55); AST (SGOT) 29 U/L (5-34); Alkaline Phosphatase 72 U/L (40-110); Anion Gap 10 mmol/L (10-20); BUN (Urea Nitrogen) 25 mg/dL (9.8-20.1); Bilirubin, Total 1.1 mg/dL (0.2-1.2); Calc. Creatinine Clearance 59 mL/min (70-130); Calcium 8.5 mg/dL (7.8-10.44); Carbon Dioxide 25 mmol/L (23-31); Chloride 113 mmol/L (98-107); Estimated GFR 88; Globulin 1.8 g/dL (2.4-3.5); Glucose 113 mg/dL (83-110); Protein, Total 4.8 g/dL (5.8-8.1); Sodium 144 mmol/L (136-145)
[2022-10-11] MEDS: Heparin 5,000 UNITS/ML VIAL SC SCH ×2 (09:13→21:49)
[2022-10-11] MEDS: Famotidine/PF 20 mg/2ml Vial SLOW IVP SCH (09:13)
[2022-10-11] MEDS: methylPREDNISolone Sod Succ 40 MG VIAL IVP SCH (10:00)
[2022-10-11] MEDS ORDERED: Bisacodyl 10 MG SUPP PR SCH (10:15)
[2022-10-12] MEDS: Sodium Chloride 0.45% 1,000 ML IV SCH ×2 (02:13→17:15)
[2022-10-12 05:59] LABS: #Eosinphils 0.1 thou/uL (0.0-0.7); #Lymphocytes 0.9 thou/uL (1.20-3.40); #Monocytes 1.3 thou/uL (0.11-0.59); #Neutrophils 16.5 thou/uL (1.40-6.50); %Basophils 0.1 % (0.0-1.0); %Eosinophils 0.6 % (0.0-10.0); %Lymphocytes 4.6 % (21.0-51.0); %Monocytes 6.9 % (0.0-10.0); %Neutrophils 87.9 % (42.0-75.0); Hemoglobin 10.4 g/dL (12.0-16.0); Mean Corpuscular HGB CONC 30.8 g/dL (32.0-36.0); Mean Corpuscular Hemoglobin 30.4 pg (27.0-31.0); Mean Corpuscular Volume 98.7 fl (78.0-98.0); Mean Platelet Volume 9.1 fL (7.4-10.4); Platelet Count 210 10x3/uL (130-400); RBC Distribution Width 14.3 % (11.5-14.5); Red Blood Cell (RBC) Count 3.42 mill/uL (4.20-5.40); White Blood Cell (WBC) Count 18.8 10x3/uL (4.8-10.8)
[2022-10-12 06:14] LABS: ALT (SGPT) 34 U/L (8-55); AST (SGOT) 41 U/L (5-34); Albumin 2.8 g/dL (3.4-4.8); Alkaline Phosphatase 75 U/L (40-110); Anion Gap 8 mmol/L (10-20); BUN (Urea Nitrogen) 23 mg/dL (9.8-20.1); Bilirubin, Total 0.9 mg/dL (0.2-1.2); Calc. Creatinine Clearance 57 mL/min (70-130); Calcium 8.8 mg/dL (7.8-10.44); Carbon Dioxide 27 mmol/L (23-31); Chloride 111 mmol/L (98-107); Estimated GFR 88; Globulin 1.9 g/dL (2.4-3.5); Glucose 142 mg/dL (83-110); Potassium 4.2 mmol/L (3.5-5.1); Protein, Total 4.7 g/dL (5.8-8.1); Sodium 142 mmol/L (136-145)
[2022-10-12] MEDS: Heparin 5,000 UNITS/ML VIAL SC SCH (09:07)
[2022-10-12] MEDS: Famotidine/PF 20 mg/2ml Vial SLOW IVP SCH (09:07)
[2022-10-12] MEDS: methylPREDNISolone Sod Succ 40 MG VIAL IVP SCH (09:08)
[2022-10-12 13:35] VITALS: BMI 23.1
[2022-10-12 19:37] VITALS: TEMP 98
[2022-10-12] MEDS ORDERED: Midazolam HCl 2 mg/2 ml Vial SLOW IVP PRN (20:00)
[2022-10-12] MEDS ORDERED: Morphine 4 MG/ML VIAL SLOW IVP PRN (20:00)
== END 2022-10-12 20:32 | disposition expired | DRG 207 ==
LOC: IMCU/EMU 20:46 → CCU 10-02 09:11 → IMCU/EMU 10-11 20:39
PROVIDERS: ADMIT Internal Medicine; ATTEND Internal Medicine
PROC: 5A09357 Assistance with Respiratory Ventilation, Less than 24 Consecutive Hours, Continuous Positive Airway Pressure (ICD-10-PCS; 2022-10-01)
PROC: 0D9670Z Drainage of Stomach with Drainage Device, Via Natural or Artificial Opening (ICD-10-PCS; 2022-10-01)
PROC: 5A1955Z Respiratory Ventilation, Greater than 96 Consecutive Hours (ICD-10-PCS; principal; 2022-10-02)
PROC: 3E033XZ Introduction of Vasopressor into Peripheral Vein, Percutaneous Approach (ICD-10-PCS; 2022-10-02)
PROC: 5A12012 Performance of Cardiac Output, Single, Manual (ICD-10-PCS; 2022-10-02)
PROC: 0BH17EZ Insertion of Endotracheal Airway into Trachea, Via Natural or Artificial Opening (ICD-10-PCS; 2022-10-02)
PROC: 02HV33Z Insertion of Infusion Device into Superior Vena Cava, Percutaneous Approach (ICD-10-PCS; 2022-10-02)
PROC: B548ZZA Ultrasonography of Superior Vena Cava, Guidance (ICD-10-PCS; 2022-10-02)
PROC: 3E043XZ Introduction of Vasopressor into Central Vein, Percutaneous Approach (ICD-10-PCS; 2022-10-02)
PROC: 3E0G76Z Introduction of Nutritional Substance into Upper GI, Via Natural or Artificial Opening (ICD-10-PCS; 2022-10-05)
PROC: 0W9930Z Drainage of Right Pleural Cavity with Drainage Device, Percutaneous Approach (ICD-10-PCS; 2022-10-05)
PROC: 5A1945Z Respiratory Ventilation, 24-96 Consecutive Hours (ICD-10-PCS; 2022-10-06)
PROC: 0BH17EZ Insertion of Endotracheal Airway into Trachea, Via Natural or Artificial Opening (ICD-10-PCS; 2022-10-06)
DX: J96.01 Acute respiratory failure with hypoxia (principal); Z66 Do not resuscitate; Z51.5 Encounter for palliative care; I21.4 Non-ST elevation (NSTEMI) myocardial infarction; G93.41 Metabolic encephalopathy; K72.00 Acute and subacute hepatic failure without coma; J44.1 Chronic obstructive pulmonary disease with (acute) exacerbation; J93.9 Pneumothorax, unspecified; E87.20 Acidosis, unspecified; I42.9 Cardiomyopathy, unspecified; N17.9 Acute kidney failure, unspecified; I50.22 Chronic systolic (congestive) heart failure; I13.0 Hypertensive heart and chronic kidney disease with heart failure and stage 1 through stage 4 chronic kidney disease, or unspecified chronic kidney disease; J96.02 Acute respiratory failure with hypercapnia; E87.6 Hypokalemia; E83.52 Hypercalcemia; D72.829 Elevated white blood cell count, unspecified; R74.01 Elevation of levels of liver transaminase levels; R57.0 Cardiogenic shock; E87.5 Hyperkalemia; E83.39 Other disorders of phosphorus metabolism; J98.2 Interstitial emphysema; I49.01 Ventricular fibrillation; I46.2 Cardiac arrest due to underlying cardiac condition; I48.0 Paroxysmal atrial fibrillation; R00.1 Bradycardia, unspecified; N18.9 Chronic kidney disease, unspecified; F17.210 Nicotine dependence, cigarettes, uncomplicated; E78.00 Pure hypercholesterolemia, unspecified; E11.22 Type 2 diabetes mellitus with diabetic chronic kidney disease; Z78.1 Physical restraint status; Z88.0 Allergy status to penicillin; Z79.899 Other long term (current) drug therapy; Z79.84 Long term (current) use of oral hypoglycemic drugs; Z90.710 Acquired absence of both cervix and uterus; Z71.6 Tobacco abuse counseling
CPT/HCPCS: 36415; 36416; 36600; 71045; 76700; 80048; 80053; 80074; 81001; 82533; 82553; 82805; 83605; 83735; 83880; 83970; 84100; 84145; 84484; 85025; 87086; 93005; 93010; 93306; 94002; 94003; 94640; 94660; J0282; J0692; J0696; J1644; J1815; J2001; J2250; J2270; J2704; J2920; J3010; J3480; J3490; J7042; J7050; J7070; J7620; P9047; S0028